=== PATIENT | male | born 1950 | race Caucasian/White ===

== ENCOUNTER 2018-11-16 01:40 | Emergency (ER) | payer MEDICARE ==
[~2018-11-16] VITALS: Ht 170.2 cm; Wt 72.6 kg
--- NOTE | 2018-11-16 02:01 | PHYS DOC ---
Adult General Chief Complaint Chief Complaint: SOB, cough HPI HPI 68-year-old male presents via EMS with cough, and increased shortness of breath. Patient has been feeling like he's having more productive cough for several days. He is a COPD patient. This evening, after he took his breathing treatment, he took a Mucinex D. 30 minutes later, he began to feel like his heart was going faster and he was having more trouble breathing. This seemed to be persisting so he called an ambulance. By the time patient arrived in the emergency room, he states that he feels like he has gone back to normal. He does continue to feel like he has more congestion and a heavy or cough. The patient's blood pressure is elevated. He has been taking all his medications as prescribed. He denies fever or chills. Review of Systems Review of Systems Constitutional: Denies fever or chills [] Eyes: Denies change in visual acuity, redness, or eye pain [] HENT: Denies nasal congestion or sore throat [] Respiratory: Cough with shortness of breath [] Cardiovascular: No additional information not addressed in HPI [] GI: Denies abdominal pain, nausea, vomiting, bloody stools or diarrhea [] : Denies dysuria or hematuria [] Musculoskeletal: Denies back pain or joint pain [] Integument: Denies rash or skin lesions [] Neurologic: Denies headache, focal weakness or sensory changes [] Endocrine: Denies polyuria or polydipsia [] All other systems were reviewed and found to be within normal limits, except as documented in this note. Current Medications Current Medications Current Medications Medications (Trade) Dose Ordered Sig/Missael Start Time Stop Time Status Last Admin Dose Admin Clonidine HCl (Catapres) 0.1 mg 1X ONCE 11/16/18 02:00 11/16/18 02:01 UNV Physical Exam Physical Exam Constitutional: Well developed, well nourished, no acute distress, non-toxic appearance. [] HENT: Normocephalic, atraumatic, bilateral external ears normal, oropharynx moist, no oral exudates, nose normal. [] Eyes: PERRLA, EOMI, conjunctiva normal, no discharge. [] Neck: Normal range of motion, no tenderness, supple, no stridor. [] Cardiovascular:Heart rate regular rhythm, no murmur [] Lungs & Thorax: Expiratory wheezing on the right[] Abdomen: Bowel sounds normal, soft, no tenderness, no masses, no pulsatile masses. [] Skin: Warm, dry, flaky, no erythema, no rash. [] Back: No tenderness, no CVA tenderness. [] Extremities: No tenderness, no cyanosis, no clubbing, ROM intact, no edema. [] Neurologic: Alert and oriented X 3, normal motor function, normal sensory function, no focal deficits noted. [] Psychologic: Affect normal, judgement normal, mood normal. [] EKG EKG Sinus rhythm, rate 73, left axis, no ST elevations or depressions.[] Radiology/Procedures Radiology/Procedures [] Impressions: Preliminary interpretation chest x-ray: No acute cardiopulmonary process is seen. Course & Med Decision Making Course & Med Decision Making Pertinent Labs and Imaging studies reviewed. (See chart for details) The patient's blood pressure is elevated. I will give him clonidine 0.1 mg. I suspect the Mucinex D cause the patient have an increase in heart rate and blood pressure as this is a potential side effect of this medication. I think the patient is also having an exacerbation of his COPD. We'll treat him for this with steroids, R 25 mg of Solu-Medrol in the ED and 3 more days of 50 mg of prednisone at home. The patient's labs are unremarkable. His chest x-ray is unremarkable. The patient is stable for discharge at this time. [] Dragon Disclaimer Dragon Disclaimer This electronic medical record was generated, in whole or in part, using a voice recognition dictation system. Departure Departure: Impression: Primary Impression: COPD exacerbation Disposition: 01 HOME, SELF-CARE Condition: STABLE Patient Instructions: Chronic Obstructive Pulmonary Disease Exacerbation, [facility] Scripts Prednisone (PREDNISONE) 10 Mg Tablet 50 MG PO DAILY for COPD for 3 Days, #15 TAB Prov: LOIDA DAVID DO 11/16/18 LOIDA DAVID DO Nov 16, 2018 02:01
--- NOTE | 2018-11-16 02:18 | EKG ---
[address] [address] Test Date: 2018-11-16 Test Time: 02:06:44 Pat Name: KING WARE Department: Room: Gender: M [employer]: : [id number] Requested By: LOIDA DAVID Order Number: [id number] Reading MD: Measurements Intervals [place] Rate: 73 P: 60 [place]: 204 QRS: -59 QRSD: 80 T: 43 QT: 364 QTc: 404 Interpretive Statements SINUS RHYTHM ABNORMAL LEFT AXIS DEVIATION QRS(T) CONTOUR ABNORMALITY CONSISTENT WITH ANTEROSEPTAL INFARCT PROBABLY OLD CONSISTENT WITH INFERIOR INFARCT PROBABLY OLD ABNORMAL ECG RI6.01 No previous ECG available for comparison
[2018-11-16] MEDS ORDERED: cloNIDine HCL 0.1 MG TABLET PO ONE (02:30)
[2018-11-16] MEDS ORDERED: methylPREDNISolone SOD SUCC PF 125 MG/2 ML VIAL. IV ONE (02:30)
[2018-11-16] MEDS ORDERED: PRED-220 PO (02:51)
[2018-11-16 03:00] LABS: BASO # 0.1 x10^3/uL (0.0-0.2); BASO % 1 % (0-3); EOS # 0.1 x10^3/uL (0.0-0.7); EOS % 1 % (0-3); HEMATOCRIT 43.7 % (39.0-53.0); HEMOGLOBIN 15.4 g/dL (13.0-17.5); LYMPH # 1.6 x10^3/uL (1.0-4.8); LYMPH % 13 % (24-48); MEAN CORPUSCULAR HEMOGLOBIN 32 pg (25-35); MEAN CORPUSCULAR HGB CONC 35 g/dL (31-37); MEAN CORPUSCULAR VOLUME 92 fL (79-100); MONO # 0.9 x10^3/uL (0.0-1.1); MONO % 8 % (0-9); NEUT # 9.5 x10^3uL (1.8-7.7); NEUT % 78 % (31-73); PLATELET COUNT 182 x10^3/uL (140-400); RED BLOOD COUNT 4.76 x10^6/uL (4.30-5.70); RED CELL DISTRIBUTION WIDTH 12.9 % (11.5-14.5); WHITE BLOOD COUNT 12.1 x10^3/uL (4.0-11.0)
[2018-11-16 03:07] LABS: ALBUMIN/GLOBULIN RATIO 1.1 (1.0-1.7); CALCIUM 9.1 mg/dL (8.5-10.1); CREATININE 1.1 mg/dL (0.7-1.3); GFR 66.8; POTASSIUM 3.8 mmol/L (3.5-5.1); TOTAL BILIRUBIN 1.4 mg/dL (0.2-1.0); TOTAL PROTEIN 7.5 g/dL (6.4-8.2)
[2018-11-16 03:39] VITALS: BP 149/85
--- NOTE | 2018-11-16 08:19 | RAD ---
CHEST PA LATERAL History: Shortness of breath. Cough. COPD.. Comparison with image from March 12, 2018, no available report. The heart size is not enlarged. No evidence of pneumothorax. No pleural effusion. Bones are intact. Small nodule in the left upper lobe is stable with a dense appearance, compatible with a granuloma. Bones are grossly intact. IMPRESSION: No evidence of acute infiltrate. Electronically signed by: Chandler Gardiner MD (11/16/2018 8:16 AM) [id number]
== END 2018-11-16 03:40 | disposition home or self-care (01) ==
LOC: ER 01:40
DX: J44.1 Chronic obstructive pulmonary disease with (acute) exacerbation (principal)
CPT/HCPCS: 36415; 71046; 80053; 84484; 85025; 93005; 96374; 99285; J2930